=== PATIENT | male | born 1995 | race Caucasian/White ===

== ENCOUNTER 2017-01-18 17:28 | Inpatient (IN) | payer OTHER ==
[~2017-01-18] VITALS: Ht 180.3 cm; Wt 72.1 kg
[~2017-01-18 17:28] MED LIST: NOHOMEMEDS
[2017-01-18 19:07] LABS: EOSINOPHIL (%) 0.7 % (0-5); HEMATOCRIT 43.5 % (38.0-50.0); IMMATURE GRANULOCYTE (%) 0.3 % (0.0-0.7); INSTRUMENT ABS NEUTROPHIL CT 3.5 K/uL; LYMPHOCYTE COUNT 1.9 K/uL (1.0-2.8); MCHC 32.6 G/DL (30.0-36.0); MCV 85.6 FL (86-99); MEAN PLAT.VOLUME 9.5 uM^3 (9.0-12.4); MONOCYTE (%) 8.1 % (3-12); MONOCYTE COUNT 0.5 K/uL (0-0.8); NEUTROPHIL (%) 58.3 % (45-76); NEUTROPHIL COUNT 3.5 K/uL (1.8-6.4); PLATELET COUNT 254 K/uL (156-360); RBC DIS.WIDTH-CV 12.3 % (11.8-14.6); RBC DIS.WIDTH-SD 38.5 % (39-53); RED BLOOD COUNT 5.08 M/uL (4.00-5.50); WHITE BLOOD COUNT 5.9 K/uL (4.1-10.2)
[2017-01-18 19:17] LABS: CHLORIDE 104 mEq/L (99-109); POTASSIUM 3.6 mEq/L (3.7-5.4); SODIUM 141 mEq/L (136-147)
[2017-01-18 19:19] LABS: GLUCOSE 65 mg/dL (70-99)
[2017-01-18 19:20] LABS: ANION GAP 10 MEQ/L (2-14)
[2017-01-18 19:23] LABS: GFR ESTIMATE (CALCULATED) > 59 mL/min/
[2017-01-18 19:24] LABS: UREA NITROGEN (BUN) 8 mg/dL (9-23)
[2017-01-18 19:35] LABS: ADD MIUA? NO; BILIRUBIN NEGATIVE; BLOOD NEGATIVE; COLOR YELLOW ((YELLOW)); GLUCOSE (STRIP) NEGATIVE; KETONES NEGATIVE; LEUKOCYTES NEGATIVE; NITRITE NEGATIVE; PROTEIN (STRIP) NEGATIVE; SPECIFIC GRAVITY 1.029 (1.000-1.030)
[2017-01-18 19:43] LABS: AMPHETAMINE NEGATIVE (500 ng/mL); BARBITURATES NEGATIVE (200 ng/mL); BENZODIAZEPINES PRESUMPTIVE POSITIVE (150 ng/mL); COCAINE NEGATIVE (150 ng/mL); METHADONE NEGATIVE (200 ng/mL); METHAMPHETAMINE NEGATIVE (500 ng/mL); OPIATES (MORPHINE) NEGATIVE (100 ng/mL); OXYCODONE NEGATIVE (100 ng/mL); PHENCYCLIDINE NEGATIVE (25 ng/mL); PROPOXYPHENE NEGATIVE (300 ng/mL); THC CANNABINOIDS PRESUMPTIVE POSITIVE (50 ng/mL); TRICYCLIC ANTIDEPRESSANTS NEGATIVE (300 ng/mL)
[2017-01-18 19:44] LABS: ADD MEDTOX COMMENT Y; INTERNAL CONTROLS VALID? YES
[2017-01-18 20:24] LABS: BENZODIAZEPINES, URINE SCREEN POSITIVE (200 ng/mL)
[2017-01-18] MEDS ORDERED: PROZAC20 MG PO (23:14)
[2017-01-18] MEDS ORDERED: WELLBUTRIN75 MG PO (23:14)
[2017-01-19 01:09] VITALS: BP 117/64
[2017-01-19 07:45] VITALS: BP 109/62
[2017-01-19 15:27] VITALS: BP 127/70
[2017-01-20 07:25] VITALS: BP 103/58
[2017-01-20 15:34] VITALS: BP 128/60
[2017-01-21 08:01] VITALS: BP 106/52
[2017-01-21 15:44] VITALS: BP 107/58
[2017-01-22 07:52] VITALS: BP 107/59
[2017-01-22] MEDS ORDERED: BUPROPION XL150 MG PO (09:28)
[2017-01-22] MEDS ORDERED: HYDROXYZINE PAM25 MG PO (09:28)
[2017-01-22] MEDS ORDERED: EFFEXOR XR150 MG PO (09:28)
== END 2017-01-22 10:59 | disposition home or self-care (01) | DRG 885 ==
LOC: EME 17:28 → 1WEST 22:06 → EDOF 22:06 → 1WEST 22:06 → ENRESERV 01-19 00:50 → 1WEST 01-19 00:55
DX: F33.2 Major depressive disorder, recurrent severe without psychotic features (principal); R45.851 Suicidal ideations; F12.10 Cannabis abuse, uncomplicated; R63.4 Abnormal weight loss; G47.9 Sleep disorder, unspecified; F40.11 Social phobia, generalized; F60.6 Avoidant personality disorder; E16.2 Hypoglycemia, unspecified; Z80.9 Family history of malignant neoplasm, unspecified; Z68.22 Body mass index [BMI] 22.0-22.9, adult
CPT/HCPCS: 80048; 81003; 84999; 85025; 90686; 90839; 97150 GO; 97165 GO; 99281; 99285; Q0177

== ENCOUNTER 2017-02-26 08:21 | Emergency (ER) | payer OTHER ==
[~2017-02-26] VITALS: Ht 180.3 cm; Wt 68.4 kg
[~2017-02-26 08:21] MED LIST changes: +BUPROPION XL150 MG PO; +EFFEXOR XR150 MG PO; +HYDROXYZINE PAM25 MG PO; +PROZAC20 MG PO; +WELLBUTRIN75 MG PO
[2017-02-26 10:43] VITALS: BP 140/86
== END 2017-02-26 10:43 | disposition home or self-care (01) ==
LOC: EME 08:21
DX: S51.811A Laceration without foreign body of right forearm, initial encounter (principal); X78.9XXA Intentional self-harm by unspecified sharp object, initial encounter; Z91.5 Personal history of self-harm; Z23 Encounter for immunization
CPT/HCPCS: 99281; 99284